=== PATIENT | male | born 1990 | race African-American/Black ===

== ENCOUNTER 2016-11-11 05:32 | Emergency (ER) | payer OTHER ==
[2016-11-11 05:57] VITALS: BP 126/67; PULSE 75; TEMP 98.2
--- NOTE | 2016-11-11 06:06 | PDOC ---
[id number] No Limitations - History of Present Illness Initial Comments: 11/11/16 06:17 The patient is a 26 year old male with no significant past medical history, presenting to the Emergency Department with multiple episodes of vomiting over the past week. The patient reports that last Sunday (11/03) he was drinking alcohol, and on Sunday he vomited after trying to eat a meal. He reports that over the past week he has not been able to keep down a meal, and has vomited each time he tries to eat. He reports to drinking water as much as possible. He reports that he is hungry, though he is losing weight due to not being able to keep down food. He also reports waking up diaphoretic during the night. The patient denies fever, or cough. Patient denies chest pain, palpitations, or shortness of breath. Patient denies cough. Patient denies dysuria, urinary frequency, and hematuria. <Justina Juarez - Last Filed: 11/11/16 06:17> <Naomy Remy - Last Filed: 11/18/16 20:31> - General Chief Complaint: Nausea/Vomiting Stated Complaint: VOMITING Time Seen by Provider: 11/11/16 05:38 Past History <Jusitna Juarez - Last Filed: 11/11/16 06:17> - Psycho/Social/Smoking Cessation Hx Suicidal Ideation: No Smoking History: Never smoked Have you smoked in the past 12 months: No Information on smoking cessation initiated: No Hx Alcohol Use: No Drug/Substance Use Hx: No <Naomy Remy - Last Filed: 11/18/16 20:31> - Past Medical History Allergies/Adverse Reactions: Allergies Allergy/AdvReac Type Severity Reaction Status Date / Time Penicillins Allergy Verified 11/11/16 05:55 Home Medications: Ambulatory Orders NK [No Known Home Medication] 11/11/16 Review of Systems - Review of Systems Able to Perform ROS?: Yes Comments:: 11/11/16 06:18 GENERAL/CONSTITUTIONAL: + diaphoresis. No fever. HEAD, EYES, EARS, NOSE AND THROAT: No change in vision. No ear pain or discharge. No sore throat. CARDIOVASCULAR: No chest pain or shortness of breath. RESPIRATORY: No cough, wheezing, or hemoptysis. GASTROINTESTINAL: + nausea, + vomiting. No diarrhea or constipation. GENITOURINARY: No dysuria, frequency, or change in urination. MUSCULOSKELETAL: No joint or muscle swelling or pain. No neck or back pain. SKIN: No rash NEUROLOGIC: No headache, vertigo, loss of consciousness, or change in strength/ sensation. ENDOCRINE: + weight loss. No increased thirst. HEMATOLOGIC/LYMPHATIC: No anemia, easy bleeding, or history of blood clots. ALLERGIC/IMMUNOLOGIC: No hives or skin allergy. <Justina Juarez - Last Filed: 11/11/16 06:17> *Physical Exam - Vital Signs Last Vital Signs Temp Pulse Resp BP Pulse Ox 98.2 F 75 20 126/67 98 11/11/16 05:55 11/11/16 05:55 11/11/16 05:55 11/11/16 05:55 11/11/16 05:55 - Physical Exam Comments: 11/11/16 06:20 GENERAL: Patient appears cachectic, awake, alert, and fully oriented, in no acute distress HEAD: No signs of trauma EYES: PERRLA, EOMI, sclera anicteric, conjunctiva clear ENT: Auricles normal inspection, hearing grossly normal, nares patent, oropharynx clear without exudates. Tongue dry NECK: Normal ROM, supple, no lymphadenopathy, JVD, or masses LUNGS: Breath sounds equal, clear to auscultation bilaterally. No wheezes, and no crackles HEART: Regular rate and rhythm, normal S1 and S2, no murmurs, rubs or gallops ABDOMEN: Soft, nontender, normoactive bowel sounds. No guarding, no rebound. No masses EXTREMITIES: Normal range of motion, no edema. No clubbing or cyanosis. No cords, erythema, or tenderness NEUROLOGICAL: Cranial nerves II through XII grossly intact. Normal speech, normal gait SKIN: Warm, Dry, normal turgor, no rashes or lesions noted. <Justina Juarez - Last Filed: 11/11/16 06:17> - Vital Signs Last Vital Signs Temp Pulse Resp BP Pulse Ox 98.2 F 75 20 126/67 98 11/11/16 05:55 11/11/16 05:55 11/11/16 05:55 11/11/16 05:55 11/11/16 05:55 <Naomy Remy - Last Filed: 11/18/16 20:31> ED Treatment Course - LABORATORY CBC & Chemistry Diagram: 11/11/16 06:24 11/11/16 06:24 <Naomy Remy - Last Filed: 11/18/16 20:31> Medical Decision Making - Medical Decision Making 11/11/16 07:22 Pt comes with inability to eat and anorexia x 1 week. Everything began last Fri after he went out for drinks, vomited all night and has been unable to eat all week. Not tolerating food ingestion. He has been drinking water all week. Pt is extremely thin. He and his girlfriend state that he is always thin. Pt will be signed out to the day ER doc who will check labs and continue to hydrate patient. <Naomy Remy - Last Filed: 11/18/16 20:31> *DC/Admit/Observation/Transfer - Attestations Scribe Attestion: 11/11/16 06:20 Documentation prepared by Justina Juarez, acting as medical van driver for Naomy Remy MD. <Justina Juarez - Last Filed: 11/11/16 06:17> <Naomy Remy - Last Filed: 11/18/16 20:31> Diagnosis at time of Disposition: Nausea & vomiting - Discharge Dispostion Disposition: HOME Condition at time of disposition: Stable - Referrals Referrals: [facility] [Provider Group] - Patient Instructions Printed Discharge Instructions: DI for Nausea -- Adult, DI for Vomiting -- Adult
[2016-11-11] MEDS ORDERED: SODIUM CHLORIDE 0.9% 500 ML INFUS.BAG IV ONE (06:16)
[2016-11-11] MEDS ORDERED: FAMOTIDINE 20 MG/50 ML IVPB 50 ML IVPB ONE ×2 (06:17→06:27)
[2016-11-11 06:38] LABS: BASOPHIL 0.2 % (0-2.0); EOSINOPHIL 0.4 % (0-4.5); MCH 27.3 pg (25.7-33.7); MCHC 33.5 g/dl (32.0-35.9); MEAN CELL VOLUME 81.6 fl (80-96); MEAN PLT VOLUME 7.7 fl (7.5-11.1); NEUTROPHILS 66.3 % (42.8-82.8); PLATELET COUNT 161 K/MM3 (134-434); RDW 12.9 % (11.9-15.9); WHITE BLOOD COUNT 7.6 K/mm3 (4.0-10.0)
[2016-11-11 07:06] LABS: ACETONE SERUM NEGATIVE (NEGATIVE)
[2016-11-11 07:13] LABS: ALBUMIN 4.1 g/dl (3.4-5.0); ANION GAP 10 (8-16); BILIRUBIN,TOTAL 0.6 mg/dL (0.2-1.0); CALCIUM 8.7 mg/dL (8.5-10.1); CO2 29 mmol/L (21-32); CREATININE 1.1 mg/dL (0.7-1.3); GLUCOSE,RANDOM 76 mg/dL (74-106); SGOT/AST 20 U/L (15-37); SGPT/ALT 34 U/L (12-78)
[2016-11-11 07:14] LABS: ALK PHOS 73 U/L (45-117); TOT PROT 8.4 g/dl (6.4-8.2)
--- NOTE | 2016-11-11 07:50 | PDOC ---
*Physical Exam - Vital Signs Last Vital Signs Temp Pulse Resp BP Pulse Ox 98.2 F 75 20 126/67 98 11/11/16 05:55 11/11/16 05:55 11/11/16 05:55 11/11/16 05:55 11/11/16 05:55 - Physical Exam Comments: 11/11/16 07:48 Patient endorsed to me by Dr. Remy. Patient is a healthy 26-year-old male who presented with nausea and numerous episodes of nonbloody nonbilious vomiting. In the ER, patient is awake and alert, resting comfortably, tolerates by mouth. CBC/CMP/lipase are within normal limit. Abdominal exam reveals no focal tenderness. Will discharge with PMD follow-up as an outpatient. ED Treatment Course - LABORATORY CBC & Chemistry Diagram: 11/11/16 06:24 11/11/16 06:24 - ADDITIONAL ORDERS Additional order review: Laboratory Results 11/11/16 11/11/16 11/11/16 06:24 06:24 06:17 Sodium 140 Potassium 3.7 Chloride 101 Carbon Dioxide 29 Anion Gap 10 BUN 17 Creatinine 1.1 Creat Clearance w eGFR > 60 Random Glucose 76 Calcium 8.7 Total Bilirubin 0.6 AST 20 ALT 34 Alkaline Phosphatase 73 Creatine Kinase 146 Total Protein 8.4 H Albumin 4.1 Lipase 117 TSH 0.55 Acetone, Qual Negative 11/11/16 06:24 RBC 5.60 MCV 81.6 MCHC 33.5 RDW 12.9 MPV 7.7 Neutrophils % 66.3 Lymphocytes % 19.3 Monocytes % 13.8 H Eosinophils % 0.4 Basophils % 0.2 - Medications Given in the ED: ED Medications Discontinued Medications Generic Name Dose Route Start Last Admin Trade Name Freq PRN Reason Stop Dose Admin Famotidine/Sodium Chloride 50 mls @ 100 mls/hr 11/11/16 06:17 11/11/16 06:32 Pepcid 20 Mg Premixed Ivpb - IVPB 11/11/16 06:46 100 mls/hr ONCE ONE Administration Sodium Chloride 1,000 ml 11/11/16 06:16 11/11/16 06:32 Normal Saline - IV 11/11/16 06:17 1,000 ml ONCE ONE Administration *DC/Admit/Observation/Transfer Diagnosis at time of Disposition: Nausea and vomiting Qualifiers: Vomiting type: unspecified Vomiting Intractability: non-intractable Qualified Code(s): R11.2 - Nausea with vomiting, unspecified - Discharge Dispostion Disposition: HOME Condition at time of disposition: Stable - Referrals Referrals: [facility] [Provider Group] - Patient Instructions Printed Discharge Instructions: DI for Nausea -- Adult, DI for Vomiting -- Adult
== END 2016-11-11 08:12 | disposition home or self-care (01) ==
LOC: JER 05:32
PROC: 3E033GC Introduction of Other Therapeutic Substance into Peripheral Vein, Percutaneous Approach (ICD-10-PCS; principal; 2016-11-11)
DX: R11.2 Nausea with vomiting, unspecified (principal)
CPT/HCPCS: 36415; 71020-TC; 80053; 82009; 82550; 83690; 84443; 85025; 96365; 99282-25